=== PATIENT | female | born 1990 | race Two or more races ===

== ENCOUNTER 2025-04-23 13:49 | Emergency (ER) | payer OTHER ==
[~2025-04-23] VITALS: Ht 172.7 cm; Wt 108.0 kg
[2025-04-23 13:57] VITALS: O2SAT 99
[2025-04-23] MEDS ORDERED: CYCL5TAB3 MT (14:40)
[2025-04-23] MEDS ORDERED: NAPR-1176 MT (14:40)
[2025-04-23] MEDS ORDERED: LIDO-53 TP (14:40)
[2025-04-23] MEDS: LIDOCAINE 5% PATCH TOP SCH (14:40)
[2025-04-23] MEDS: KETOROLAC 15MG/ML VIAL IM ONE (14:40)
[2025-04-23 15:43] VITALS: BP 146/99; PULSE 73; RESP 14; TEMP 36.9; O2SAT 100
== END 2025-04-23 15:47 | disposition home or self-care (01) ==
LOC: ER 13:49
DX: S13.4XXA Sprain of ligaments of cervical spine, initial encounter (principal); V49.9XXA Car occupant (driver) (passenger) injured in unspecified traffic accident, initial encounter; Y92.410 Unspecified street and highway as the place of occurrence of the external cause; Y93.89 Activity, other specified; Y99.8 Other external cause status
CPT/HCPCS: 81025; 96372; 99283; J1885; Z7610